=== PATIENT | male | born 1990 | race Caucasian/White ===

== ENCOUNTER 2016-11-13 22:57 | Emergency (ER) | payer BC, OTHER ==
[2016-11-13 23:11] VITALS: BP 139/98
[2016-11-13] MEDS ORDERED: Cephalexin 250 MG Cap PO ONE (23:51)
[2016-11-13] MEDS ORDERED: Cephalexin 250 MG Cap ONE ×2 (23:58→23:59)
[2016-11-14] MEDS ORDERED: Bacitracin Oint 1 GM U/D Packet TOP ONE (00:12)
[2016-11-14] MEDS ORDERED: Bacitracin Oint 1 GM U/D Packet ONE (00:12)
--- NOTE | 2016-11-14 00:19 | EDM.PDOC ---
ED HPI GENERAL MEDICAL PROBLEM - General Chief Complaint: Laceration Stated Complaint: left hand thumb injury Time Seen by Provider: 11/13/16 23:22 Source of Information: Reports: Patient History Limitations: Reports: No Limitations - History of Present Illness INITIAL COMMENTS - FREE TEXT/NARRATIVE: Patient brought in by Karla for evaluation of left thumb injury. Coworker released a mechanism early that resulted in patient's thumb being caught between two parts on assembly line. Bottom portion amputated. Nail intact. No other finger/hand injury reported. No other injuries. Tetanus updated last year. Treatments [employer]OR: Reports: Dressing(s) Left Hand Pain Score (Numeric/FACES): 10 - Related Data Allergies Allergy/AdvReac Type Severity Reaction Status Date / Time No Known Allergies Allergy Verified 11/13/16 22:59 Home Meds: Home Meds ALPRAZolam [Alprazolam] 0.25 mg PO TID PRN 11/13/16 [History] Escitalopram Oxalate 10 mg PO DAILY 11/13/16 [History] Ibuprofen 2 tab PO Q6H PRN 11/13/16 [History] Ranitidine [Zantac] 150 mg PO DAILY 11/13/16 [History] Cephalexin [Keflex] 500 mg PO Q6HR #40 cap 11/14/16 [Rx] traMADol [Ultram] 50 mg PO Q6H PRN #20 tablet 11/14/16 [Rx] Past Medical History Psychiatric History: Reports: Anxiety, Depression Social & Family History - Tobacco Use Smoking Status *Q: Current Every Day Smoker - Alcohol Use Alcohol Use History: Yes Total Drinks Per Week Comment: Rarely uses alcohol. - Recreational Drug Use Recreational Drug Use: No Drug Use in Last 12 Months: No ED ROS GENERAL - Review of Systems Review Of Systems: ROS reveals no pertinent complaints other than HPI. ED EXAM, SKIN/RASH Exam: See Below Exam Limited By: No Limitations General Appearance: Alert, WD/WN, No Apparent Distress Eye Exam: Bilateral Eye: EOMI, PERRL Head: Atraumatic, Normocephalic Respiratory/Chest: No Respiratory Distress Peripheral Pulses: 2+: Radial (L) Extremities: Other (Ventral aspect of patient's left thumb amputated. Nail intact. Dorsal aspect finger intact. Some bone noted to be minimally protruding from tissue distal portion phalanx. No deformity of thumb noted, motion apears intact. Other fingers and rest of hand unremarkable. ) Neurological: Alert, Oriented, Normal Cognition, Normal Gait Psychiatric: Normal Affect, Normal Mood ED SKIN PROCEDURES - Laceration/Wound Repair Left Finger Lac/Wound length In cm: 4 Appearance: Other (avulsion/amputation ventral portion of thumb (pad) ) Distal NVT: No Tendon Injury, Other (vascularly intact) Anesthetic Type: Digital Local Anesthesia - Lidocaine (Xylocaine): 1% Plain Local Anesthetic Volume: 5cc Skin Prep: Providone-Iodine (Betadine) Exploration/Debridement/Repair: Wound Explored, Explored to Base, Other (Unable to repair this injury. Cleansed area of dirt/grease prior to placing dressing over injury) Sterile Dressing Applied: Nurse Tetanus Status Addressed: Yes Complications: No Course - Vital Signs Last Recorded V/S: Last Vital Signs Temp 37.2 C 11/13/16 23:10 Pulse 70 11/13/16 23:10 Resp 21 H 11/13/16 23:10 BP 139/98 H 11/13/16 23:10 Pulse Ox 100 11/13/16 23:10 - Orders/Labs/Meds Orders: Active Orders 24 hr Category Date Time Status Hand Comp Min 3V Lt [CR] Stat Exams 11/13/16 23:00 Taken Meds: Medications Discontinued Medications Generic Name Dose Route Start Last Admin Trade Name Glenny PRN Reason Stop Dose Admin Bacitracin Confirm 11/14/16 00:12 Bacitracin Oint 1 Gm Administered 11/14/16 00:13 Dose 1 dose .ROUTE .STK-MED ONE Cephalexin 500 mg 11/13/16 23:51 Keflex PO 11/13/16 23:52 ONETIME ONE Cephalexin Confirm 11/13/16 23:58 Keflex Administered 11/13/16 23:59 Dose 500 mg .ROUTE .STK-MED ONE Cephalexin Confirm 11/13/16 23:59 Keflex Administered 11/14/16 00:00 Dose 500 mg .ROUTE .STK-MED ONE Lidocaine HCl 5 ml 11/13/16 23:51 Xylocaine-Mpf 1% INJECT 11/13/16 23:52 ONETIME ONE - Radiology Interpretation Free Text/Narrative:: Xray suggests minimally displaced fracture of distal portion phalanx of thumb - Re-Assessments/Exams Free Text/Narrative Re-Assessment/Exam: 11/14/16 00:22 Discussed patient with from [facility]. He recommended Bacitracin and Xeroform gauze and to have patient follow up Friday at clinic. Wound soaked. Digital block performed. Wound cleansed to attempt to remove as much grease from skin as possible. Patient will go home with take home bottle of Tyl #3. Keflex given in ER. He will pear picker Rx of Keflex tomorrow. He is to change the dressing daily. He knows that he can come here as outpatient for us to perform dressing changes if he is uncomfortable. He lives in [place], and currently plans on following up with [place] for supplies and will likely do the changes himself. Work slips filled out for patient. Departure - Departure Time of Disposition: 00:50 Disposition: Home, Self-Care 01 Condition: Good Clinical Impression: Avulsion of skin of finger Qualifiers: Encounter type: initial encounter Qualified Code(s): S61.209A - Unspecified open wound of unspecified finger without damage to nail, initial encounter Fracture of thumb Qualifiers: Encounter type: initial encounter Fracture type: open Phalanx: distal Fracture alignment: nondisplaced Laterality: left Qualified Code(s): S62.525B - Nondisplaced fracture of distal phalanx of left thumb, initial encounter for open fracture - Discharge Information Prescriptions: Cephalexin [Keflex] 500 mg PO Q6HR #40 cap traMADol [Ultram] 50 mg PO Q6H PRN #20 tablet PRN Reason: Pain Instructions: Traumatic Finger Amputation Forms: ED Department Discharge Additional Instructions: Finger will need daily dressing changes. You can do these yourself or as an outpatient at your local hospital. You must arrange this through your local hospital. You will also need to get Xeroform gauze as well as Bacitracin ointment if you wish to do the dressing changes yourself. It is recommended that you go to your local hospital tomorrow afternoon for first dressing change. You must call [facility] tomorrow at [phone] and arrange a follow up appointment with the Orthopedics hand specialists for next Friday. Tell them you were seen by us padmini for this injury and that we spoke to . Dr.Erpelding directed us to have you be seen by them on Friday. Go right away to the pharmacy in the morning to pear picker your antibiotics. You need to take these 4 times a day, ideally every 6 hours. You may take pain pills as needed. - My Orders Last 24 Hours: My Active Orders 11/13/16 23:00 Hand Comp Min 3V Lt [CR] Stat - Assessment/Plan Last 24 Hours: My Active Orders 11/13/16 23:00 Hand Comp Min 3V Lt [CR] Stat
== END 2016-11-14 01:05 | disposition home or self-care (01) ==
LOC: LL.ED 22:57
DX: S62.525B Nondisplaced fracture of distal phalanx of left thumb, initial encounter for open fracture (principal); S61.012A Laceration without foreign body of left thumb without damage to nail, initial encounter; F17.200 Nicotine dependence, unspecified, uncomplicated; Z79.899 Other long term (current) drug therapy; W23.1XXA Caught, crushed, jammed, or pinched between stationary objects, initial encounter
CPT/HCPCS: 73130; 99283; A9270; 64450